=== PATIENT | female | born 1970 | race Caucasian/White ===

== ENCOUNTER 2016-11-01 07:45 | Emergency (ER) | payer SELFPAY ==
[2016-11-01] MEDS ORDERED: Ketorolac INJ* 30 MG/ML 1 ML VIAL IV PUSH ONE (08:00)
[2016-11-01] MEDS ORDERED: Ondansetron INJ* 2 MG/ML VIAL IV ONE (08:01)
[2016-11-01] MEDS ORDERED: Morphine INJ* 4 MG/ML 1 ML SYRINGE IV ONE (08:01)
[2016-11-01] MEDS ORDERED: Aspirin Low Dose CHEW TAB* 81 MG PO ONE (08:32)
[2016-11-01 08:48] LABS: Hematocrit 40 % (35-47); Hemoglobin 13.3 g/dl (12.0-16.0); Mean Corpuscular HGB Conc 33 g/dl (31-36); Mean Corpuscular Hemoglobin 31 pg (27-31); Mean Corpuscular Volume 94 fL (80-97); Mean Platelet Volume 9 um3 (7.4-10.4); Red Blood Count 4.23 10^6/ul (4.0-5.4); Red Cell Distribution Width 14 % (10.5-15); White Blood Count 9.7 10^3/ul (3.5-10.8)
[2016-11-01] MEDS: NS 0.9% 1000 ML* 2,000 ML IV ONE ×2 (08:57→11:54)
[2016-11-01 09:03] LABS: Albumin 3.9 g/dL (3.2-5.2); BUN/Creatinine Ratio 29.4 (8-20); Calcium 8.9 mg/dL (8.6-10.3); EGFR African American 118.8 (>60); EGFR Non-African American 92.3 (>60); Potassium 3.8 mmol/L (3.5-5.0); Total Bilirubin 0.5 mg/dL (0.2-1.0); Total Protein 6.9 g/dL (6.4-8.9)
[2016-11-01] MEDS ORDERED: Iohexol 350* (CONTRAST) 500 ML MDV IV ONE (09:08)
--- NOTE | 2016-11-01 09:10 | RAD ---
INDICATION: Pleuritic chest pain COMPARISON: None TECHNIQUE: An AP portable view obtained at 0845 hours is submitted. FINDINGS: Bones/Soft Tissues: There are no acute bony findings. Cardiomediastinal: The cardiomediastinal silhouette is normal. Lungs: There are no infiltrates. There is no pneumothorax. Pleura: There are no pleural effusions. Other: None IMPRESSION: NO ACTIVE DISEASE. NO PNEUMOTHORAX.
[2016-11-01] MEDS ORDERED: Diazepam TAB(*) 5 MG PO ONE (10:40)
--- NOTE | 2016-11-01 10:51 | RAD ---
INDICATION: Pain with inspiration, renal pain. COMPARISON: Comparison is made with a prior chest x-ray study from November 01, [address] of the abdomen and pelvis from January 05, 2009. TECHNIQUE: A CT angiogram of the chest and a CT of the abdomen and pelvis was performed with intravenous contrast following intravenous injection of 62 ml of Omnipaque 350 nonionic contrast. Contiguous axial sections were obtained from the lung apices through the symphysis pubis. Images were reconstructed in the coronal and sagittal planes. FINDINGS: CT ANGIOGRAM OF THE CHEST: There is relatively homogeneous opacification of the pulmonary arteries. No intraluminal filling defect or pulmonary embolism is seen. The heart is within normal limits in size. No pericardial effusion is present. The thoracic aorta is normal in caliber and demonstrates homogeneous contrast opacification without evidence for dissection. No significant enlarged mediastinal or hilar lymph nodes are seen. There is mild dependent bilateral lower lobe subsegmental atelectasis. The lungs are otherwise clear. There is a trace left pleural effusion. CT OF THE ABDOMEN AND PELVIS: The liver and spleen are normal in size. There is a small hypervascular lesion noted in the posterior segment of the right hepatic lobe measuring 1.2 cm in size. This is not seen on the prior exam possibly due to different phases of contrast enhancement. No other focal abnormalities are seen. No calcified gallstones are noted. There is a small cyst in the inferior portion of the right hepatic lobe measuring 1.1 cm in size which is unchanged from the prior study. The kidneys and adrenal glands are normal in size. No hydronephrosis is seen. No significant focal renal abnormality is seen. The abdominal aorta is normal in caliber. There is mild calcific plaque present. No significant enlarged retroperitoneal lymph nodes are seen. The stomach, small and large bowel appear nondistended. The appendix appears to be within normal limits. There is no evidence for diverticulitis or colitis. The uterus is anteverted and normal in size. There is a 2.2 x 2.0 cm right ovarian cyst. No free intraperitoneal air or fluid is seen. No significant focal osseous abnormality is seen. IMPRESSION: 1. NO EVIDENCE FOR PULMONARY EMBOLISM. 2. TRACE LEFT PLEURAL EFFUSION. 3. NO EVIDENCE FOR ACUTE FINDING IN THE ABDOMEN OR PELVIS OR CAUSE FOR THE PATIENT'S ABDOMINAL PAIN. 4. SMALL HYPERVASCULAR LESION WITHIN THE LIVER LIKELY REPRESENTING A HEMANGIOMA OR FOCAL NODULAR HYPERPLASIA ALTHOUGH NONSPECIFIC. RECOMMEND A RIGHT UPPER QUADRANT ULTRASOUND FOR FURTHER EVALUATION. 5. SMALL RIGHT OVARIAN CYST.
[2016-11-01 12:36] LABS: Urine Bacteria Absent (Absent); Urine Bilirubin Negative (Negative); Urine Glucose Negative (Negative); Urine Nitrite Negative (Negative)
[2016-11-01 13:09] VITALS: BP 119/65
--- NOTE | 2016-11-01 15:20 | ED ---
Nima Leon Adam, scribed for Jovan Mcgowan MD on 11/01/16 at 0819 . Back Pain - HPI Summary HPI Summary: Pt is a 46 year old female presenting with pain around her left posterior ribcage. She describes it as throbbing, pulsating, shooting, and stabbing. It does not radiate to her groin, abdomen, or chest. She states that the pain has been constant but fluctuating in severity. It set on yesterday while the pt was at work "doing nothing." She took ibuprofen which alleviated the pain temporarily but it was worse this morning so she decided to come to the ED. Breathing and movement aggravate the pain. Pt also reports vomiting yesterday and SOB earlier today. She denies rash, fever, chills, CP, edema, rhinorrhea, and sore throat. She denies any trauma or recent illness. Pt denies hx of kidney stones or any other PMHx. She is a smoker. - History of Current Complaint Chief Complaint: EDBackInjuryPain Stated Complaint: BACK PAIN Time Seen by Provider: 11/01/16 08:12 Hx Obtained From: Patient Onset/Duration: Sudden Onset, Lasting Days, Still Present Onset/Duration: Atraumatic Timing: Constant Back Pain Location: Is Discrete @ - Left posterior ribcage Severity Initially: Mild Severity Currently: Moderate Pain Intensity: 10 Pain Scale Used: 0-10 Numeric Character: Sharp - "Stabbing", Throbbing - "Pulsating, shooting" Aggravating Symptom(s): Movement - Deep breaths Alleviating Symptom(s): OTC Meds - Ibuprofen Associated Signs And Symptoms: Positive: Other - Vomiting, SOB - Allergies/Home Medications Allergies/Adverse Reactions: Allergies Allergy/AdvReac Type Severity Reaction Status Date / Time No Known Allergies Allergy Verified 11/01/16 07:50 PMH/Surg Hx/FS Hx/Imm Hx Previously Healthy: Yes Endocrine/Hematology History: Denies: Hx Diabetes History: Denies: Hx Kidney Stones Infectious Disease History: No Infectious Disease History: Denies: Traveled Outside the [place] in Last 30 Days - Family History Known Family History: Positive: Cardiac Disease, Diabetes, Other - Cancer - Social History Occupation: Employed Full-time Lives: Alone Alcohol Use: Occasionally Hx Tobacco Use: Yes Smoking Status (MU): Heavy Every Day Tobacco Smoker Type: Cigarettes Review of Systems Negative: Fever, Chills Negative: Sore Throat, Nasal Discharge Negative: Chest Pain Positive: Shortness Of Breath Positive: Vomiting Positive: Other - Pain in left side. Negative: Edema Negative: Rash All Other Systems Reviewed And Are Negative: Yes Physical Exam - Summary Physical Exam Summary: The patient is well-nourished in mild distress. The skin is warm and dry and skin color reflects adequate perfusion. HEENT: The head is normocephalic and atraumatic. The pupils are equal and reactive. The conjunctivae are injected. Nares are patent and without drainage. Mouth reveals moist mucous membranes and the throat is without erythema and exudate. The external ears are intact. The ear canals are patent and without drainage. The tympanic membranes are intact. Neck is supple with full range of motion and non-tender. There are no carotid bruits. There is no neck vein distension. Respiratory: Chest is non-tender. Lungs are clear to auscultation and breath sounds are symmetrical and equal. No subcutaneous emphysema. Cardiovascular: Heart is regular rate and rhythm. There is no murmur or rub auscultated. There is no peripheral edema and pulses are symmetrical and equal. Abdomen: The abdomen is soft and non-tender. There are normal bowel sounds heard in all four quadrants and there is no organomegaly palpated. Musculoskeletal: There is percussion tenderness in the CVA area and the left posterior ribs. No reproducible chest pain. Neurological: Patient is alert and oriented to person, place and time. The patient has symmetrical motor strength in all four extremities. Cranial nerves are grossly intact. Deep tendon reflexes are symmetrical and equal in all four extremities. Psychiatric: The patient has an appropriate affect and does not exhibit any anxiety or depression. Triage Information Reviewed: Yes Vital Signs On Initial Exam: Initial Vitals Temp Pulse Resp BP Pulse Ox 99.5 F 101 20 113/100 100 11/01/16 07:46 11/01/16 07:46 11/01/16 07:46 11/01/16 07:46 11/01/16 07:46 Vital Signs Reviewed: Yes Diagnostics - Vital Signs Vital Signs Temp Pulse Resp BP Pulse Ox 11/01/16 07:46 99.5 F 101 20 113/100 100 - Laboratory Lab Results: Lab Results 11/01/16 11/01/16 11/01/16 Range/Units 07:55 07:55 07:55 WBC 9.7 (3.5-10.8) 10^3/ul RBC 4.23 (4.0-5.4) 10^6/ul Hgb 13.3 (12.0-16.0) g/dl Hct 40 (35-47) % MCV 94 (80-97) fL MCH 31 (27-31) pg MCHC 33 (31-36) g/dl RDW 14 (10.5-15) % Plt Count 198 (150-450) 10^3/ul MPV 9 (7.4-10.4) um3 Neut % (Auto) 64.3 (38-83) % Lymph % (Auto) 25.3 (25-47) % Mitchell % (Auto) 9.4 H (1-9) % Eos % (Auto) 0.6 (0-6) % Baso % (Auto) 0.4 (0-2) % Absolute Neuts (auto) 6.2 (1.5-7.7) 10^3/ul Absolute Lymphs (auto) 2.5 (1.0-4.8) 10^3/ul Absolute Monos (auto) 0.9 H (0-0.8) 10^3/ul Absolute Eos (auto) 0.1 (0-0.6) 10^3/ul Absolute Basos (auto) 0 (0-0.2) 10^3/ul Absolute Nucleated RBC 0 10^3/ul Nucleated RBC % 0 INR (Anticoag Therapy) (0.89-1.11) Sodium 135 (133-145) mmol/L Potassium 3.8 (3.5-5.0) mmol/L Chloride 106 (101-111) mmol/L Carbon Dioxide 21 L (22-32) mmol/L Anion Gap 8 (2-11) mmol/L BUN 20 (6-24) mg/dL Creatinine 0.68 (0.51-0.95) mg/dL Est GFR ( Amer) 118.8 (>60) Est GFR (Non-Af Amer) 92.3 (>60) BUN/Creatinine Ratio 29.4 H (8-20) Glucose 133 H (70-100) mg/dL Lactic Acid 1.3 (0.5-2.0) mmol/L Calcium 8.9 (8.6-10.3) mg/dL Total Bilirubin 0.50 (0.2-1.0) mg/dL AST 16 (13-39) U/L ALT 16 (7-52) U/L Alkaline Phosphatase 60 (34-104) U/L Total Creatine Kinase 80 (10-223) U/L Troponin I 0.00 (<0.04) ng/mL B-Natriuretic Peptide ( - 100) pg/mL Total Protein 6.9 (6.4-8.9) g/dL Albumin 3.9 (3.2-5.2) g/dL Globulin 3.0 (2-4) g/dL Albumin/Globulin Ratio 1.3 (1-3) Urine Color Urine Appearance Urine pH (5-9) Ur Specific [place] (1.010-1.030) Urine Protein (Negative) Urine Ketones (Negative) Urine Blood (Negative) Urine Nitrate (Negative) Urine Bilirubin (Negative) Urine Urobilinogen (Negative) Ur Leukocyte Esterase (Negative) Urine WBC (Auto) (Absent) Urine RBC (Auto) (Absent) Ur Squamous Epith Cells (Absent) Urine Bacteria (Absent) Urine Glucose (Negative) 11/01/16 11/01/16 11/01/16 Range/Units 07:55 07:55 11:55 WBC (3.5-10.8) 10^3/ul RBC (4.0-5.4) 10^6/ul Hgb (12.0-16.0) g/dl Hct (35-47) % MCV (80-97) fL MCH (27-31) pg MCHC (31-36) g/dl RDW (10.5-15) % Plt Count (150-450) 10^3/ul MPV (7.4-10.4) um3 Neut % (Auto) (38-83) % Lymph % (Auto) (25-47) % Mitchell % (Auto) (1-9) % Eos % (Auto) (0-6) % Baso % (Auto) (0-2) % Absolute Neuts (auto) (1.5-7.7) 10^3/ul Absolute Lymphs (auto) (1.0-4.8) 10^3/ul Absolute Monos (auto) (0-0.8) 10^3/ul Absolute Eos (auto) (0-0.6) 10^3/ul Absolute Basos (auto) (0-0.2) 10^3/ul Absolute Nucleated RBC 10^3/ul Nucleated RBC % INR (Anticoag Therapy) 0.81 L (0.89-1.11) Sodium (133-145) mmol/L Potassium (3.5-5.0) mmol/L Chloride (101-111) mmol/L Carbon Dioxide (22-32) mmol/L Anion Gap (2-11) mmol/L BUN (6-24) mg/dL Creatinine (0.51-0.95) mg/dL Est GFR ( Amer) (>60) Est GFR (Non-Af Amer) (>60) BUN/Creatinine Ratio (8-20) Glucose (70-100) mg/dL Lactic Acid (0.5-2.0) mmol/L Calcium (8.6-10.3) mg/dL Total Bilirubin (0.2-1.0) mg/dL AST (13-39) U/L ALT (7-52) U/L Alkaline Phosphatase (34-104) U/L Total Creatine Kinase (10-223) U/L Troponin I (<0.04) ng/mL B-Natriuretic Peptide 56 ( - 100) pg/mL Total Protein (6.4-8.9) g/dL Albumin (3.2-5.2) g/dL Globulin (2-4) g/dL Albumin/Globulin Ratio (1-3) Urine Color Yellow Urine Appearance Cloudy Urine pH 5.0 (5-9) Ur Specific [place] 1.016 (1.010-1.030) Urine Protein Negative (Negative) Urine Ketones Negative (Negative) Urine Blood 1+ H (Negative) Urine Nitrate Negative (Negative) Urine Bilirubin Negative (Negative) Urine Urobilinogen Negative (Negative) Ur Leukocyte Esterase Negative (Negative) Urine WBC (Auto) Absent (Absent) Urine RBC (Auto) 1+(3-5/hpf) H (Absent) Ur Squamous Epith Cells Present H (Absent) Urine Bacteria Absent (Absent) Urine Glucose Negative (Negative) Result Diagrams: 11/01/16 07:55 11/01/16 07:55 Lab Statement: Any lab studies that have been ordered have been reviewed, and results considered in the medical decision making process. - Radiology CXR Radiology Interpretation Completed By: Radiologist - IMPRESSION: NO ACTIVE DISEASE. NO PNEUMOTHORAX. - CT CHEST/ABDOMEN/PELVIS CTA CT Interpretation Completed By: Radiologist - IMPRESSION: 1. NO EVIDENCE FOR PULMONARY EMBOLISM. 2. TRACE LEFT PLEURAL EFFUSION. 3. NO EVIDENCE FOR ACUTE FINDING IN THE ABDOMEN OR PELVIS OR CAUSE FOR THE PATIENT'S ABDOMINAL PAIN. 4. SMALL HYPERVASCULAR LESION WITHIN THE LIVER LIKELY REPRESENTING A HEMANGIOMA OR FOCAL NODULAR HYPERPLASIA ALTHOUGH NONSPECIFIC. RECOMMEND A RIGHT UPPER QUADRANT ULTRASOUND FOR FURTHER EVALUATION. 5. SMALL RIGHT OVARIAN CYST. - EKG 07:50 Cardiac Rate: NL - 91 BPM EKG Rhythm: Sinus Rhythm ST Segment: Normal EKG Interpretation: Poor R wave progression. Normal axis. No STEMI. - Additional Comments Diagnostic Additional Comments: Troponin I - 0.00 Re-Evaluation - Re-Evaluation First Eval Re-Evaluation Time: 12:00 - Patient denies any cough. She will be discharged home with Henderson and Valium. Back Pain Course/Dx - Diagnoses Differential Diagnosis/HQI/PQRI: Positive: Other - pe, renal colic, pneumothorax , pneumonia, pleural effusion, pyleonephritis, muscleosketal back pain Provider Diagnoses: Musculoskeletal back pain, Pleurisy Discharge - Discharge Plan Condition: Stable Disposition: HOME Prescriptions: Diazepam TAB(*) [Valium TAB(*)] 5 mg PO Q6H PRN #20 tab MDD 4 PRN Reason: pain HYDROcodone/ACETAMIN 5-325 MG* [Henderson 5-325 TAB*] 1 tab PO Q6H PRN #20 tab MDD 4 PRN Reason: pain Patient Education Materials: Back Pain (ED), Pleurisy (ED) Referrals: Benoit Garcia MD [Medical Doctor] - Grace Villavicencio MD [Primary Care Provider] - Additional Instructions: Follow up with Dr. Garcia this week. The documentation as recorded by the Nima blank Adam accurately reflects the service I personally performed and the decisions made by , Jovan Mcgowan MD.
== END 2016-11-01 13:07 | disposition home or self-care (01) ==
LOC: ED 07:45
DX: M54.9 Dorsalgia, unspecified (principal); R09.1 Pleurisy; R06.02 Shortness of breath; R11.10 Vomiting, unspecified; F17.210 Nicotine dependence, cigarettes, uncomplicated
CPT/HCPCS: 36415; 71010; 71275; 74177; 80053; 81003; 81015; 82550; 83605; 83880; 84484; 85025; 85610; 93005; 96374; 96375; 99283; A9270-GY; J1885; J2270; J2405; Q9967